=== PATIENT | male | born 1960 | race Caucasian/White ===

== ENCOUNTER 2018-10-20 14:27 | Observation (INO) | payer SELFPAY ==
--- NOTE | 2018-10-20 16:26 | HP ---
TRAUMA SURGEON: Song Day DO CONSULT PHYSICIAN: None. HISTORY OF PRESENT ILLNESS: Mr. Sol is a 58-year-old male patient, who presented to outside emergency department due to severe right lower quadrant/inguinal pain. The patient reports he was climbing underneath the house to check on a sweat pipe when a strong sweat smell caused him to strain and retch. Subsequently, he had significant right inguinal pain. He exited from the house and vomited several times. He went to the emergency department due to a persistent right inguinal hernia. The patient reports that he has been having the hernia off and on for about a year and three months. At the outside hospital, he received a CT scan of the abdomen and pelvis, which demonstrated concern for strangulated right inguinal hernia. He was transferred to [facility] Emergency Department after acceptance by Dr. Day. En route, he received pain medication, and subsequently, the inguinal hernia reduced and was no longer incarcerated. On my examination, the patient reported a very little right inguinal pain. He reports that he did have a bowel movement today. He has also been passing gas since before the incident and after the incident during his emergency room stay. His last meal was breakfast today. REVIEW OF SYSTEMS: All additional review of systems is negative except as indicated above. PAST MEDICAL HISTORY: None. PAST SURGICAL HISTORY: None. SOCIAL HISTORY: The patient is currently working. He smokes about a half a pack of cigarettes per day. He is a daily alcohol drinker. He does smoke marijuana occasionally. He lives alone. MEDICATIONS: None. ALLERGIES: NO KNOWN DRUG ALLERGIES. PHYSICAL EXAMINATION: VITAL SIGNS: Blood pressure 112/65, pulse 65, respirations 19, oxygen saturation 99% on 3 L oxygen via nasal cannula, and temperature 95.6. GENERAL: Alert, well-appearing, middle-aged male, sitting up in bed with nasal cannula in place. Appears comfortable with no signs of acute distress. HEENT: Significant chronic dental issues, but otherwise no signs of any trauma. Pupils equal, round, reactive to light. PULMONARY: Equal chest rise and fall. No signs of acute distress. Equal breath sounds bilaterally. ABDOMEN: Abdomen is soft and nondistended. Minimal tenderness in the right inguinal area with a small amount of swelling in that right inguinal area as well. Left inguinal area without signs of any hernia or pain. EXTREMITIES: Gross motor and sensation intact in all 4 extremities. 2+ pulses in all extremities. No signs of any trauma or deformity. LABORATORY FINDINGS: White cell count 13.7, hemoglobin 13.5, hematocrit 42.8, and platelets 254. INR 1.0. Sodium 139, potassium 3.6, chloride 104, carbon dioxide 22, BUN 10, creatinine 0.88, glucose 135. Lactic acid 1.9. Total bilirubin 0.3, AST 18, and ALT 16. DIAGNOSTIC FINDINGS: CT of the abdomen and pelvis demonstrates dilation of the pancreatic duct with hypodensity cystic area seen within the region of the pancreatic head, which may represent cystic pancreatic lesion, benign or malignant. MRI and MRCP are recommended for further evaluation. GI consultation may be helpful for further evaluation. Subcentimeter, too small to characterize hypodensity lesion in the left hepatic lobe. Non-obstructed superior pole renal calculi. Large right inguinal hernia with mildly dilated fluid-filled loops of small bowel proximal to the region suggesting developing small bowel obstruction. There is also fluid seen within the hernia defect, which does extend into the scrotum on the right. There is questionable associated internal hernia within the mid pelvis, which is in the region of the dilated loops of small bowel and mild edema within the mesentery. Surgical consultation is recommended in urgent/emergent basis for further evaluation. Mild thickening of the wall of the stomach which is probably attributed to incomplete distention. ASSESSMENT: 1. Right inguinal hernia, not incarcerated. 2. History of alcohol abuse. PLAN: The right inguinal hernia previously seen on CT and evaluated at outside emergency department does not seem to be incarcerated on evaluation in the emergency department at [facility]. The patient reports very good pain control and has stated that he has passed gas since his initial arrival in the emergency department. He did agree to observation today with plan to fix the hernia tomorrow by Dr. Day. The patient states that the hernia is persistent over the past 12 to 15 months, and he does not feel safe to go home as it is likely to reoccur before he is able to schedule the repair as outpatient. He will receive a clear liquid and be n.p.o. after midnight. He can have p.o. medications. We will hold DVT chemoprophylaxis at this time for surgery tomorrow. He will have preoperative a.m. labs as well. This patient was discussed with Dr. Day today after the examination. Job ID: [id number]
[2018-10-20] MEDS ORDERED: Dextrose 5% in Water 1,000 ML IV PRN (17:36)
[2018-10-20] MEDS ORDERED: traMADol HCl 50 MG TAB PO PRN ×2 (17:36)
[2018-10-20] MEDS ORDERED: Promethazine HCl 25 MG/ML VIAL IM PRN (17:36)
[2018-10-20] MEDS ORDERED: hydrALAZINE 20 MG/ML VIAL SLOW IVP PRN (17:36)
[2018-10-20] MEDS ORDERED: Morphine 4 MG/ML VIAL SLOW IVP PRN ×3 (17:36→17:59)
[2018-10-20] MEDS ORDERED: Dextrose 50% Abboject 50 ML SYRINGE SLOW IVP PRN (17:36)
[2018-10-20] MEDS ORDERED: Ondansetron PF 4 MG/2 ML Vial IVP PRN (17:36)
[2018-10-20] MEDS: Acetaminophen 500 MG TAB PO SCH (18:23)
[2018-10-20] MEDS: Sodium Chloride 0.9% 1,000 ML IV SCH (18:30)
[2018-10-20] MEDS: Oxazepam 10 MG CAP PO SCH (20:49)
[2018-10-20] MEDS: Famotidine/PF 20 mg/2ml Vial SLOW IVP SCH (20:49)
[2018-10-20 22:59] VITALS: BMI 21.7
[2018-10-21] MEDS: Acetaminophen 500 MG TAB PO SCH ×3 (00:13→13:19)
[2018-10-21] MEDS: Sodium Chloride 0.9% 1,000 ML IV SCH ×2 (03:15→15:54)
[2018-10-21] MEDS: Oxazepam 10 MG CAP PO SCH ×2 (05:42→14:14)
[2018-10-21 06:03] LABS: #Basophils 0.1 thou/uL (0.0-0.2); #Eosinphils 0.2 thou/uL (0.0-0.7); #Lymphocytes 1.8 thou/uL (1.20-3.40); #Monocytes 1.1 thou/uL (0.11-0.59); #Neutrophils 8.3 thou/uL (1.40-6.50); %Basophils 0.5 % (0.0-1.0); %Lymphocytes 15.5 % (21.0-51.0); %Monocytes 9.8 % (0.0-10.0); %Neutrophils 72.2 % (42.0-75.0); Hemoglobin 13.4 g/dL (14.0-18.0); Mean Corpuscular HGB CONC 31.5 g/dL (32.0-36.0); Mean Corpuscular Hemoglobin 27.6 pg (27.0-31.0); Mean Corpuscular Volume 87.6 fL (78.0-98.0); Mean Platelet Volume 7.7 fL (7.4-10.4); Platelet Count 215 thou/uL (130-400); RBC Distribution Width 12.4 % (11.5-14.5); Red Blood Cell (RBC) Count 4.85 mill/uL (4.70-6.10); White Blood Cell (WBC) Count 11.5 thou/uL (4.8-10.8)
[2018-10-21 06:14] LABS: Prothrombin Time 13.3 SEC (12.0-14.7)
[2018-10-21 06:32] LABS: Anion Gap 10 mmol/L (10-20); BUN (Urea Nitrogen) 9 mg/dL (8.4-25.7); Calc. Creatinine Clearance 91 mL/min (70-130); Calcium 8.5 mg/dL (7.8-10.44); Carbon Dioxide 26 mmol/L (22-29); Chloride 109 mmol/L (98-107); Estimated GFR-MDRD Greater than 90; Glucose 97 mg/dL (70-105); Phosphorus 2.9 mg/dL (2.3-4.7); Potassium 4.1 mmol/L (3.5-5.1); Sodium 141 mmol/L (136-145)
[2018-10-21] MEDS ORDERED: Potassium Phosphate 15 MMOL in Sodium Chloride 0.9% 250 ML 250 ML IVPB SCH (07:00)
[2018-10-21] MEDS: Famotidine/PF 20 mg/2ml Vial SLOW IVP SCH (08:18)
[2018-10-21] MEDS ORDERED: Bupivacaine HCl 0.5%/Epinephrine 1:200,000/PF 30 ml Vial ONE (09:40)
[2018-10-21] MEDS ORDERED: Midazolam HCl 2 mg/2 ml Vial ONE (09:55)
[2018-10-21] MEDS ORDERED: Fentanyl 100 MCG/2 ML VIAL ONE ×2 (10:20→12:04)
[2018-10-21] MEDS ORDERED: Ondansetron HCl/PF 4 MG/2 ML Vial IVP PRN (11:08)
[2018-10-21] MEDS ORDERED: Promethazine HCl 25 MG/ML VIAL SLOW IVP PRN (11:08)
[2018-10-21] MEDS ORDERED: Promethazine HCl 25 MG/ML VIAL IM PRN (11:08)
[2018-10-21 13:44] VITALS: TEMP 98
[2018-10-21] MEDS ORDERED: PROPOFOL 200 MG/20 ML VIAL ONE (16:03)
[2018-10-21] MEDS ORDERED: Lidocaine 1% PF 5 ML VIAL ONE (16:03)
[2018-10-21] MEDS ORDERED: Glycopyrrolate 0.2 MG/ML 5 ML SYRINGE ONE (16:03)
[2018-10-21] MEDS ORDERED: Rocuronium Bromide 10 MG/ML (10ML VIAL) ONE (16:03)
[2018-10-21 17:12] VITALS: BP 128/70
--- NOTE | 2018-10-21 17:37 | OP ---
DATE OF PROCEDURE: 10/21/2018 PREOPERATIVE DIAGNOSIS: Acute incarcerated right inguinal hernia. POSTOPERATIVE DIAGNOSIS: Reduced acute incarcerated large indirect inguinal hernia. PROCEDURE PERFORMED: Repair of right inguinal hernia with large Bard PerFix plug mesh. ANESTHESIA: General endotracheal. ESTIMATED BLOOD LOSS: Less than 5 mL. FLUIDS GIVEN: 500 mL of crystalloids. COUNTS: Sponge and instrument counts were verified as correct x2. COMPLICATIONS: None apparent at the time of operation. INDICATIONS FOR OPERATION: This is a 58-year-old man, who presented yesterday with what was thought to be a strangulated right inguinal hernia. Upon presentation, the hernia had spontaneously reduced. Abdominal pain was resolving. The patient was placed on observation. This morning, he reports no abdominal pain. The right inguinal hernia is now reducible, but easily returns into the scrotal sac. The patient was brought to the operating room for right inguinal hernia repair. FINDINGS: Consistent with a large indirect right inguinal hernia. There was no evidence of direct hernia present. DESCRIPTION OF OPERATION: Informed consent was obtained from the patient. He was brought to the operating room and placed in supine position. Following general anesthesia, the abdomen and pelvis were sterilely prepped and draped in usual fashion including the scrotum. A right oblique incision was made using 15 scalpel. Incision was carried through subcutaneous tissues maintaining hemostasis using cautery. Superficial vessels were cauterized and then divided. Nacho's fascia was incised along the line of the incision. The external oblique aponeurosis was then opened along the running fibers using a fresh scalpel. Hernia sac and cord structures were dissected free from underlying structures and encircled at the pubic tubercle using a Tip drain. The right inguinal floor was inspected. No direct hernia was present. We were then able to meticulously dissect off the hernia sac, freeing this from adherent cord structures. Care taken to avoid injuries to the vas deferens and vasculature. Cremasteric muscles were teased apart. No bleeding noted. The large hernia sac was then opened and contents were reduced into the peritoneal cavity. This was then twisted and ligated at the high inguinal position using a stick tie of 2-0 Vicryl and this was also doubly ligated with a free tie of 2-0 Vicryl. The sac was then amputated and passed off the operative field followed up transmission to Pathology. The operative site was inspected for good hemostasis. At this juncture, a large PerFix plug mesh was brought into the operative field and this was inserted into the internal ring, suturing this to internal oblique aponeurosis. A patch was then brought up to the operative field. The apex of the patch was sutured at the pubic tubercle using 2-0 Prolene suture. The mesh was secured medially to the internal oblique aponeurosis and laterally to the shelving portion of the external oblique fascia. The [place] drain was then removed. External oblique fascia was approximated over the cord and structures using a running stitch of 2-0 Prolene. The wound bed was generously infiltrated with 0.5% Marcaine with epinephrine. Nacho's fascia was approximated. This was achieved using a running stitch of 3-0 Vicryl. Skin incision was closed using a running stitch of 4-0 Monocryl suture in subcuticular fashion. Dermabond was applied over incisional closure. The right testicle was withdrawn into the scrotal sac. The patient tolerated the operation without any apparent complication and was returned to recovery room in satisfactory condition. Job ID: [id number]
[2018-10-21] MEDS ORDERED: Ibuprofen 600 MG TAB PO SCH (18:00)
--- NOTE | 2018-10-21 19:50 | DIS ---
DATE OF ADMISSION: 10/20/2018 DATE OF DISCHARGE: 10/21/2018 ADMITTING DIAGNOSIS: Acute incarcerated right inguinal hernia. DISCHARGE DIAGNOSIS: Acute incarcerated right inguinal hernia, resolved. OPERATION PERFORMED: Repair of right inguinal hernia with mesh on 10/21/2018, by Dr. Day. Please see separate dictation for operative report. HISTORY AND HOSPITAL COURSE: A 58-year-old man presented with nonreducible bulge in right groin mass, for which he was evaluated in an outside hospital. He was transferred to [facility] in [place], [place] for upper level workup and care of a suspected strangulated hernia. Upon presentation, the hernia had spontaneously resolved. The patient was having residual abdominal pain. He was therefore placed in observation for serial abdominal examination to rule out reduced ischemic incarcerated small bowel. This morning, the patient was evaluated. He has a reducible large right inguinal hernia, but no abdominal pain present. He was brought to the operating room therefore for inguinal herniorrhaphy. Following all the uneventful surgery, the patient returned to the floor for postoperative recovery. Hours later, he is ambulating with minimal difficulty. His pain remains controlled with oral analgesics. There is no evidence of recurrence with respect to the hernia. The patient was discharged home with the following instructions; 1. He sees me in the Surgery Clinic in 2 weeks. 2. He is to avoid weight lifting in excess of 20 pounds until I have released him. 3. He may shower effective tomorrow, but avoid soaking himself in a bathtub or swimming. May take acetaminophen 1000 mg p.o. q.6 hours alternating this with ibuprofen 600 mg p.o. q.8 hours. Additionally, he was given a prescription for tramadol 50 mg #30 to be taken 1 to 2 p.o. q.6 hours p.r.n. breakthrough pain. The patient is to call me with any questions or problems including recurrence of the hernia, exacerbation of pain, or intolerance to oral intake. The patient indicates understanding of information given. I have answered his questions. He has expressed gratitude for the care entire time during this hospitalization and surgery. Job ID: [id number]
== END 2018-10-21 17:20 | disposition home or self-care (01) ==
LOC: ERS 14:27 → SURG A 17:31
PROVIDERS: ADMIT Surgery; ATTEND Surgery
PROC: 0YU50JZ Supplement Right Inguinal Region with Synthetic Substitute, Open Approach (ICD-10-PCS; principal; 2018-10-21)
DX: K40.30 Unilateral inguinal hernia, with obstruction, without gangrene, not specified as recurrent (principal); F17.210 Nicotine dependence, cigarettes, uncomplicated
CPT/HCPCS: 36415; 80048; 83735; 84100; 85025; 88302; 96361; 96374; 96376; 99285; C1781; G0378; J0670; J2001; J2250; J2704; J3010; J7050; S0028

== ENCOUNTER 2021-04-29 12:44 | Inpatient (IN) | payer SELFPAY ==
[~2021-04-29 12:44] MED LIST: Iopamidol-370 76% 500 ML 1 ML ONE
[2021-04-29 13:20] LABS: Hemoglobin 15.7 g/dL (14.0-18.0); Mean Corpuscular HGB CONC 32.7 g/dL (32.0-36.0); Mean Corpuscular Hemoglobin 29.9 pg (27.0-31.0); Mean Corpuscular Volume 91.3 fL (78.0-98.0); Mean Platelet Volume 9.2 fL (7.4-10.4); Platelet Count 202 thou/uL (130-400); RBC Distribution Width 13.5 % (11.5-14.5); Red Blood Cell (RBC) Count 5.27 mill/uL (4.70-6.10); White Blood Cell (WBC) Count 20.5 thou/uL (4.8-10.8)
[2021-04-29] MEDS ORDERED: cefTRIAXone\\ROCEPHIN 2 GM VIAL ONE (13:21)
[2021-04-29] MEDS ORDERED: Vancomycin 1 GM/200 ML BAG ONE (13:21)
[2021-04-29 13:28] LABS: Bacteria/HPF None Seen HPF (None Seen); Bilirubin Negative (Negative); Blood, Urine Negative (Negative); Clarity Clear (Clear); Glucose, Urine (Dipstick) Normal (Negative); Ketone, Urine 20 mg/dL (Negative); Leukocyte Negative Leu/uL (Negative); Nitrite Negative (Negative); Protein, Urine (Dipstick) 30 mg/dL (Neg-Trace); RBC/HPF None Seen HPF (0-3); Specific Gravity, Urine 1.034 (1.002-1.036); Squamous Epithelial None Seen HPF (0-3); Urobilinogen Normal mg/dL (Less than 2); WBC/HPF 0-3 HPF (0-3)
[2021-04-29 13:34] LABS: INR-International Normal Ratio 1.1; Prothrombin Time 14.4 sec (12.0-14.7)
[2021-04-29 13:35] LABS: PTT 26.9 sec (22.9-36.1)
[2021-04-29 13:39] LABS: Amphetamine Not Detected (NotDetected); Barbiturates Screen Not Detected (NotDetected); Benzodiazepine Screen Not Detected (NotDetected); Cocaine Metabolite Screen Detected (NotDetected); Methadone Not Detected (NotDetected); Methamphetamine Detected (NotDetected); Opiate Screen Not Detected (NotDetected); Oxycodone Screen Not Detected (NotDetected); Phencyclidine (PCP) Not Detected (NotDetected); THC/Cannabinoid Screen Not Detected (NotDetected); Tricyclic Screen Not Detected (NotDetected)
[2021-04-29 13:43] LABS: Band 3 % (5-11); Lymphocytes 4 % (21-51); MDiff Complete? YES; Monocytes 8 % (0-10); Neutrophil 84 % (42-75); Platelet Morphology Comment Appears Adequate; Polychromasia SLIGHT = 2-3 cells (100X) (0-2/hpf); Reactive Lymphocytes 1 % (0-10)
[2021-04-29 13:44] LABS: Acetaminophen Less than 6.0 mcg/mL (10.0-30.0); Alcohol Less than 10 mg/dL (Less than 10); Salicylate Less than 8.0 mg/dL (15.0-30.0)
[2021-04-29 14:14] LABS: CKMB 8.2 ng/mL (0-6.6)
[2021-04-29] MEDS ORDERED: Lorazepam 2 MG/ML VIAL ONE (14:16)
[2021-04-29] MEDS ORDERED: Labetalol HCl 100 MG/20 ML VIAL ONE (14:27)
[2021-04-29 14:43] LABS: Albumin 3.5 g/dL (3.5-5.0)
[2021-04-29 14:44] LABS: Chloride 114 mmol/L (98-107); Potassium 4.8 mmol/L (3.5-5.1); Sodium 143 mmol/L (136-145)
[2021-04-29 14:45] LABS: Calcium 8.2 mg/dL (7.8-10.44); Glucose 147 mg/dL (70-105)
[2021-04-29] MEDS ORDERED: Lorazepam 2 MG/ML VIAL SLOW IVP SCH (14:45)
[2021-04-29] MEDS ORDERED: Vancomycin 1 GM in Premix Bag 1 BAG IVPB SCH (14:45)
[2021-04-29] MEDS ORDERED: cefTRIAXone\\ROCEPHIN 2 GM in Sodium Chloride 0.9% 100 ML IVPB SCH (14:45)
[2021-04-29] MEDS ORDERED: Sodium Chloride 0.9% 3,000 ML IV SCH (14:45)
[2021-04-29 14:46] LABS: Globulin 2.9 g/dL (2.4-3.5); Protein, Total 6.4 g/dL (6.0-8.3)
[2021-04-29 14:47] LABS: Anion Gap 13 mmol/L (10-20); Bilirubin, Total 1.1 mg/dL (0.2-1.2); Carbon Dioxide 21 mmol/L (22-29)
[2021-04-29 14:48] LABS: Alkaline Phosphatase 71 U/L (40-110)
[2021-04-29 14:49] LABS: Calc. Creatinine Clearance 0 mL/min (70-130)
[2021-04-29 14:50] LABS: BUN (Urea Nitrogen) 20 mg/dL (8.4-25.7)
[2021-04-29 14:51] LABS: ALT (SGPT) 28 U/L (8-55); AST (SGOT) 34 U/L (5-34); Magnesium 1.9 mg/dL (1.6-2.6)
[2021-04-29 14:52] LABS: Lipase 21 U/L (8-78)
[2021-04-29] MEDS ORDERED: Labetalol HCl 200 MG in Sodium Chloride 0.9% 250 ML 160 ML IVPB SCH (15:00)
[2021-04-29 15:32] LABS: SARS-CoV-2 NAA Rapid Test Not Detected (NotDetected)
[2021-04-29 16:25] LABS: Lactic Acid 2.5 mmol/L (0.5-2.2)
[2021-04-29 16:41] LABS: Troponin I 2.113 ng/mL (< 0.028)
[2021-04-29] MEDS ORDERED: Digoxin 0.5 MG/2 ML AMP SLOW IVP SCH (18:30)
[2021-04-29] MEDS ORDERED: Ondansetron PF 4 MG/2 ML Vial IVP PRN (18:31)
[2021-04-29] MEDS ORDERED: Digoxin 0.5 MG/2 ML AMP ONE (18:34)
[2021-04-29 18:47] VITALS: BMI 19.6
[2021-04-29] MEDS ORDERED: Labetalol HCl 200 MG, Admixture Fee 1 EACH in Sodium Chloride 0.9% 250 ML 160 ML IVPB SCH (19:00)
[2021-04-29 19:52] LABS: Critical Call Chem Troponin I RESULT DECREASING; Troponin I 1.856 ng/mL (< 0.028)
[2021-04-29] MEDS ORDERED: Metoprolol Tartrate 5 MG/5 ML VIAL ONE ×3 (20:30→22:36)
[2021-04-29 21:42] LABS: Lactic Acid 2.5 mmol/L (0.5-2.2)
[2021-04-29] MEDS: Metoprolol Tartrate 5 MG/5 ML VIAL IVP PRN ×3 (22:20→23:38)
[2021-04-29] MEDS ORDERED: Metoprolol Tartrate 50 MG TAB ONE (22:34)
[2021-04-30] MEDS ORDERED: Diltiazem 125 MG/25 ML ONE ×3 (00:21→21:50)
[2021-04-30] MEDS ORDERED: Vancomycin 1.5 GRAM/300 ML BAG 1.5 GM in Premix Bag 1 BAG IVPB SCH (01:00)
[2021-04-30] MEDS ORDERED: Piperacillin/Tazobactam 3.375 GM VIAL ONE ×3 (01:43→23:49)
[2021-04-30] MEDS: Sodium Chloride 0.9% 1,000 ML IV SCH ×4 (02:05→21:27)
[2021-04-30] MEDS: Piperacillin/Tazobactam 3.375 GM in Sodium Chloride 0.9% 100 ML IVPB SCH ×4 (02:33→23:51)
[2021-04-30] MEDS ORDERED: Vancomycin 1 GM/200 ML BAG ONE ×3 (04:33→12:12)
[2021-04-30] MEDS: Vancomycin 1 GM in Premix Bag 1 BAG IVPB SCH ×3 (04:35→13:50)
[2021-04-30 05:06] LABS: #Basophils 0.1 thou/uL (0.0-0.2); #Lymphocytes 1.4 thou/uL (1.20-3.40); #Monocytes 1.6 thou/uL (0.11-0.59); #Neutrophils 15.4 thou/uL (1.40-6.50); %Basophils 0.3 % (0.0-1.0); %Eosinophils 0.2 % (0.0-10.0); %Lymphocytes 7.8 % (21.0-51.0); %Monocytes 8.4 % (0.0-10.0); %Neutrophils 83.4 % (42.0-75.0); Hemoglobin 14.3 g/dL (14.0-18.0); Mean Corpuscular HGB CONC 33.1 g/dL (32.0-36.0); Mean Corpuscular Hemoglobin 30.4 pg (27.0-31.0); Mean Corpuscular Volume 91.8 fL (78.0-98.0); Mean Platelet Volume 8.3 fL (7.4-10.4); Platelet Count 207 thou/uL (130-400); RBC Distribution Width 13.1 % (11.5-14.5); Red Blood Cell (RBC) Count 4.69 mill/uL (4.70-6.10); White Blood Cell (WBC) Count 18.5 thou/uL (4.8-10.8)
[2021-04-30 05:28] LABS: Anion Gap 12 mmol/L (10-20); BUN (Urea Nitrogen) 13 mg/dL (8.4-25.7); Calc. Creatinine Clearance 97 mL/min (70-130); Calcium 8.5 mg/dL (7.8-10.44); Carbon Dioxide 25 mmol/L (22-29); Cardiac Risk 3.9 (Less than 4.5); Chloride 110 mmol/L (98-107); Cholesterol 144 mg/dl (< 200 Desired); Glucose 112 mg/dL (70-105); HDL Cholesterol 37 mg/dL (>60 Neg Risk); LDL Cholesterol, Calculated 87 mg/dL; Potassium 3.5 mmol/L (3.5-5.1); Sodium 143 mmol/L (136-145); Triglycerides 98 mg/dL (Less than 150)
[2021-04-30] MEDS ORDERED: Acetaminophen 650 MG Suppository ONE ×2 (05:51→21:47)
[2021-04-30] MEDS: Acetaminophen 650 MG Suppository PR PRN ×2 (05:53→22:01)
[2021-04-30] MEDS ORDERED: Lorazepam 2 MG/ML VIAL ONE (10:52)
[2021-04-30] MEDS: Lorazepam 2 MG/ML VIAL SLOW IVP PRN (10:57)
[2021-04-30] MEDS: Thiamine HCl 200 MG/2 ML VIAL SLOW IVP SCH (10:57)
[2021-04-30 13:33] LABS: Vancomycin, Trough 9.2 ug/mL
[2021-04-30] MEDS: Vancomycin 1.5 GRAM/300 ML BAG 1.5 GM in Premix Bag 1 BAG IVPB SCH (21:26)
[2021-05-01] MEDS ORDERED: Diltiazem 125 MG/25 ML ONE (04:01)
[2021-05-01 04:41] LABS: Hemoglobin 14.9 g/dL (14.0-18.0); Mean Corpuscular HGB CONC 33.9 g/dL (32.0-36.0); Mean Corpuscular Hemoglobin 30.5 pg (27.0-31.0); Mean Corpuscular Volume 89.9 fL (78.0-98.0); Mean Platelet Volume 7.1 fL (7.4-10.4); Platelet Count 215 thou/uL (130-400); RBC Distribution Width 12.6 % (11.5-14.5); White Blood Cell (WBC) Count 26.6 thou/uL (4.8-10.8)
[2021-05-01 04:57] LABS: Anion Gap 11 mmol/L (10-20); BUN (Urea Nitrogen) 11 mg/dL (8.4-25.7); Calc. Creatinine Clearance 98 mL/min (70-130); Calcium 8.5 mg/dL (7.8-10.44); Carbon Dioxide 24 mmol/L (22-29); Chloride 106 mmol/L (98-107); Glucose 103 mg/dL (70-105); Potassium 3.3 mmol/L (3.5-5.1); Sodium 138 mmol/L (136-145)
[2021-05-01 05:34] LABS: Band 13 % (5-11); Lymphocytes 1 % (21-51); MDiff Complete? YES; Monocytes 6 % (0-10); Neutrophil 79 % (42-75); Reactive Lymphocytes 1 % (0-10)
[2021-05-01] MEDS: Vancomycin 1.5 GRAM/300 ML BAG 1.5 GM in Premix Bag 1 BAG IVPB SCH ×3 (07:06→23:09)
[2021-05-01] MEDS ORDERED: Aspirin 300 MG Suppository ONE (09:20)
[2021-05-01] MEDS ORDERED: Piperacillin/Tazobactam 3.375 GM VIAL ONE (09:20)
[2021-05-01] MEDS: Aspirin 300 MG Suppository PR SCH (09:36)
[2021-05-01] MEDS: Piperacillin/Tazobactam 3.375 GM in Sodium Chloride 0.9% 100 ML IVPB SCH ×3 (10:28→17:08)
[2021-05-01] MEDS: Diltiazem 125 MG in Sodium Chloride 0.9% 100 ML IVPB SCH ×2 (12:52→23:09)
[2021-05-01] MEDS: Thiamine HCl 200 MG/2 ML VIAL SLOW IVP SCH (14:37)
[2021-05-01] MEDS: Sodium Chloride 0.9% 1,000 ML IV SCH ×2 (14:41→20:58)
[2021-05-01] MEDS ORDERED: Amino Acids 4.25 %/Dextrose 5% 2,000 ML BAG IV SCH (18:00)
[2021-05-01] MEDS ORDERED: Amino Acids 4.25 %/Dextrose 5% 2,000 ML IV SCH (18:30)
[2021-05-01] MEDS: Amino Acids 4.25 %/Dextrose 5% 1,000 ML IV SCH (20:56)
[2021-05-01 22:02] LABS: Vancomycin, Trough 19.8 ug/mL
[2021-05-02] MEDS: Piperacillin/Tazobactam 3.375 GM in Sodium Chloride 0.9% 100 ML IVPB SCH ×3 (01:27→16:26)
[2021-05-02] MEDS: Sodium Chloride 0.9% 1,000 ML IV SCH (06:07)
[2021-05-02] MEDS: Vancomycin 1.5 GRAM/300 ML BAG 1.5 GM in Premix Bag 1 BAG IVPB SCH ×2 (06:09→13:35)
[2021-05-02] MEDS: Diltiazem 125 MG in Sodium Chloride 0.9% 100 ML IVPB SCH ×2 (06:42→16:51)
[2021-05-02 08:12] LABS: #Eosinphils 0.3 thou/uL (0.0-0.7); #Lymphocytes 1.1 thou/uL (1.20-3.40); #Monocytes 1.6 thou/uL (0.11-0.59); #Neutrophils 19.5 thou/uL (1.40-6.50); %Eosinophils 1.2 % (0.0-10.0); %Lymphocytes 4.7 % (21.0-51.0); %Neutrophils 87.1 % (42.0-75.0); Hemoglobin 14.7 g/dL (14.0-18.0); Mean Corpuscular HGB CONC 33.4 g/dL (32.0-36.0); Mean Corpuscular Hemoglobin 29.8 pg (27.0-31.0); Mean Corpuscular Volume 89.3 fL (78.0-98.0); Mean Platelet Volume 7.9 fL (7.4-10.4); Platelet Count 209 thou/uL (130-400); RBC Distribution Width 12.6 % (11.5-14.5); Red Blood Cell (RBC) Count 4.95 mill/uL (4.70-6.10); White Blood Cell (WBC) Count 22.4 thou/uL (4.8-10.8)
[2021-05-02 08:24] LABS: Anion Gap 11 mmol/L (10-20); BUN (Urea Nitrogen) 12 mg/dL (8.4-25.7); Calc. Creatinine Clearance 109 mL/min (70-130); Calcium 8.5 mg/dL (7.8-10.44); Carbon Dioxide 22 mmol/L (22-29); Chloride 106 mmol/L (98-107); Glucose 115 mg/dL (70-105); Sodium 136 mmol/L (136-145)
[2021-05-02] MEDS: Aspirin 300 MG Suppository PR SCH (08:29)
[2021-05-02 08:30] LABS: Potassium 2.9 mmol/L (3.5-5.1)
[2021-05-02] MEDS: Thiamine HCl 200 MG/2 ML VIAL SLOW IVP SCH (11:33)
[2021-05-02] MEDS ORDERED: Potassium Chloride 40 MEQ in Premix Bag 1 BAG IVPB SCH (15:00)
[2021-05-02] MEDS ORDERED: Potassium Chloride 40 MEQ in Sodium Chloride 0.9% 250 ML 250 ML IVPB SCH (16:00)
[2021-05-02] MEDS: Amino Acids 4.25 %/Dextrose 5% 1,000 ML IV SCH (16:43)
[2021-05-02 20:15] LABS: Vancomycin, Trough 21.8 ug/mL
[2021-05-02] MEDS: Vancomycin 1 GM in Premix Bag 1 BAG IVPB SCH (21:40)
[2021-05-03] MEDS: Diltiazem 125 MG in Sodium Chloride 0.9% 100 ML IVPB SCH ×3 (01:37→19:32)
[2021-05-03] MEDS: Piperacillin/Tazobactam 3.375 GM in Sodium Chloride 0.9% 100 ML IVPB SCH ×3 (02:05→17:29)
[2021-05-03] MEDS: Sodium Chloride 0.9% 1,000 ML IV SCH (05:04)
[2021-05-03 06:40] LABS: #Eosinphils 0.1 thou/uL (0.0-0.7); #Lymphocytes 0.8 thou/uL (1.20-3.40); #Monocytes 1.6 thou/uL (0.11-0.59); #Neutrophils 17.5 thou/uL (1.40-6.50); %Basophils 0.1 % (0.0-1.0); %Eosinophils 0.5 % (0.0-10.0); %Lymphocytes 3.9 % (21.0-51.0); %Monocytes 7.9 % (0.0-10.0); %Neutrophils 87.7 % (42.0-75.0); Mean Corpuscular HGB CONC 34.9 g/dL (32.0-36.0); Mean Corpuscular Hemoglobin 30.7 pg (27.0-31.0); Mean Platelet Volume 6.9 fL (7.4-10.4); Platelet Count 246 thou/uL (130-400); RBC Distribution Width 12.3 % (11.5-14.5); Red Blood Cell (RBC) Count 4.89 mill/uL (4.70-6.10); White Blood Cell (WBC) Count 19.9 thou/uL (4.8-10.8)
[2021-05-03 07:01] LABS: Anion Gap 14 mmol/L (10-20); BUN (Urea Nitrogen) 9 mg/dL (8.4-25.7); Calc. Creatinine Clearance 111 mL/min (70-130); Calcium 8.9 mg/dL (7.8-10.44); Carbon Dioxide 22 mmol/L (22-29); Chloride 103 mmol/L (98-107); Glucose 135 mg/dL (70-105); Sodium 136 mmol/L (136-145)
[2021-05-03] MEDS: Vancomycin 1 GM in Premix Bag 1 BAG IVPB SCH ×3 (07:01→22:59)
[2021-05-03 07:08] LABS: Potassium 2.7 mmol/L (3.5-5.1)
[2021-05-03] MEDS: Potassium Chloride 20 MEQ in Premix Bag 1 BAG IVPB SCH ×4 (08:37→15:31)
[2021-05-03] MEDS: Aspirin 300 MG Suppository PR SCH (08:47)
[2021-05-03] MEDS: Thiamine HCl 200 MG/2 ML VIAL SLOW IVP SCH (11:50)
[2021-05-03] MEDS: Amino Acids 4.25 %/Dextrose 5% 1,000 ML IV SCH (12:31)
[2021-05-03 22:03] LABS: Vancomycin, Trough 15.2 ug/mL
[2021-05-04] MEDS: Piperacillin/Tazobactam 3.375 GM in Sodium Chloride 0.9% 100 ML IVPB SCH ×3 (00:54→17:45)
[2021-05-04] MEDS: Diltiazem 125 MG in Sodium Chloride 0.9% 100 ML IVPB SCH ×3 (03:08→20:25)
[2021-05-04] MEDS: Sodium Chloride 0.9% 1,000 ML IV SCH (03:09)
[2021-05-04] MEDS: Vancomycin 1 GM in Premix Bag 1 BAG IVPB SCH ×3 (05:51→22:02)
[2021-05-04] MEDS ORDERED: Potassium Chloride 20 MEQ in Premix Bag 1 BAG IVPB SCH (08:30)
[2021-05-04] MEDS: Aspirin 300 MG Suppository PR SCH (08:47)
[2021-05-04] MEDS: Acetaminophen 650 MG Suppository PR PRN (08:48)
[2021-05-04 09:45] LABS: Anion Gap 14 mmol/L (10-20); BUN (Urea Nitrogen) 10 mg/dL (8.4-25.7); Calc. Creatinine Clearance 114 mL/min (70-130); Calcium 9.1 mg/dL (7.8-10.44); Carbon Dioxide 24 mmol/L (22-29); Chloride 103 mmol/L (98-107); Glucose 123 mg/dL (70-105); Magnesium 1.8 mg/dL (1.6-2.6); Phosphorus 2.9 mg/dL (2.3-4.7); Sodium 138 mmol/L (136-145)
[2021-05-04 09:54] LABS: Potassium 2.9 mmol/L (3.5-5.1)
[2021-05-04] MEDS: Amino Acids 4.25 %/Dextrose 5% 1,000 ML IV SCH (10:29)
[2021-05-04] MEDS: Potassium Chloride 20 MEQ in Premix Bag 1 BAG IVPB SCH ×4 (11:55→18:38)
[2021-05-04] MEDS: Thiamine HCl 200 MG/2 ML VIAL SLOW IVP SCH (12:17)
[2021-05-04 21:28] LABS: Vancomycin, Trough 14.5 ug/mL
[2021-05-05] MEDS: Piperacillin/Tazobactam 3.375 GM in Sodium Chloride 0.9% 100 ML IVPB SCH (01:04)
[2021-05-05] MEDS: Sodium Chloride 0.9% 1,000 ML IV SCH (01:05)
[2021-05-05] MEDS: Vancomycin 1 GM in Premix Bag 1 BAG IVPB SCH ×2 (05:13→13:47)
[2021-05-05] MEDS: Diltiazem 125 MG in Sodium Chloride 0.9% 100 ML IVPB SCH ×3 (05:13→22:53)
[2021-05-05 07:36] LABS: Magnesium 2.2 mg/dL (1.6-2.6)
[2021-05-05] MEDS: Aspirin 300 MG Suppository PR SCH (08:23)
[2021-05-05] MEDS: Amino Acids 4.25 %/Dextrose 5% 1,000 ML IV SCH (08:29)
[2021-05-05] MEDS: Thiamine HCl 200 MG/2 ML VIAL SLOW IVP SCH (10:21)
[2021-05-05 10:39] LABS: #Basophils 0.1 thou/uL (0.0-0.2); #Eosinphils 0.4 thou/uL (0.0-0.7); #Lymphocytes 1.1 thou/uL (1.20-3.40); #Neutrophils 13.2 thou/uL (1.40-6.50); %Basophils 0.3 % (0.0-1.0); %Eosinophils 2.4 % (0.0-10.0); %Lymphocytes 6.4 % (21.0-51.0); %Monocytes 11.8 % (0.0-10.0); %Neutrophils 79.1 % (42.0-75.0); Hemoglobin 15.9 g/dL (14.0-18.0); Mean Corpuscular HGB CONC 34.5 g/dL (32.0-36.0); Mean Corpuscular Hemoglobin 30.5 pg (27.0-31.0); Mean Corpuscular Volume 88.4 fL (78.0-98.0); Mean Platelet Volume 8.4 fL (7.4-10.4); Platelet Count 220 thou/uL (130-400); RBC Distribution Width 12.5 % (11.5-14.5); Red Blood Cell (RBC) Count 5.19 mill/uL (4.70-6.10); White Blood Cell (WBC) Count 16.7 thou/uL (4.8-10.8)
[2021-05-05 11:13] LABS: Anion Gap 20 mmol/L (10-20); BUN (Urea Nitrogen) 11 mg/dL (8.4-25.7); Calc. Creatinine Clearance 103 mL/min (70-130); Calcium 9.3 mg/dL (7.8-10.44); Carbon Dioxide 17 mmol/L (22-29); Chloride 109 mmol/L (98-107); Glucose 101 mg/dL (70-105); Potassium 4.8 mmol/L (3.5-5.1); Sodium 141 mmol/L (136-145)
[2021-05-06] MEDS: Lorazepam 2 MG/ML VIAL SLOW IVP PRN ×2 (01:50→22:32)
[2021-05-06] MEDS: Metoprolol Tartrate 5 MG/5 ML VIAL IVP PRN (02:03)
[2021-05-06 05:19] LABS: #Basophils 0.1 thou/uL (0.0-0.2); #Eosinphils 0.3 thou/uL (0.0-0.7); #Lymphocytes 1.3 thou/uL (1.20-3.40); #Monocytes 1.6 thou/uL (0.11-0.59); #Neutrophils 14.3 thou/uL (1.40-6.50); %Basophils 0.3 % (0.0-1.0); %Eosinophils 1.7 % (0.0-10.0); %Lymphocytes 7.3 % (21.0-51.0); %Monocytes 9.3 % (0.0-10.0); %Neutrophils 81.4 % (42.0-75.0); Hemoglobin 14.5 g/dL (14.0-18.0); Mean Corpuscular Hemoglobin 29.8 pg (27.0-31.0); Mean Corpuscular Volume 87.9 fL (78.0-98.0); Mean Platelet Volume 6.7 fL (7.4-10.4); Platelet Count 344 thou/uL (130-400); RBC Distribution Width 12.3 % (11.5-14.5); Red Blood Cell (RBC) Count 4.88 mill/uL (4.70-6.10); White Blood Cell (WBC) Count 17.6 thou/uL (4.8-10.8)
[2021-05-06 05:36] LABS: Anion Gap 11 mmol/L (10-20); BUN (Urea Nitrogen) 12 mg/dL (8.4-25.7); Calc. Creatinine Clearance 114 mL/min (70-130); Calcium 9.1 mg/dL (7.8-10.44); Carbon Dioxide 27 mmol/L (22-29); Chloride 103 mmol/L (98-107); Glucose 117 mg/dL (70-105); Sodium 138 mmol/L (136-145)
[2021-05-06] MEDS: cefTRIAXone\\ROCEPHIN 2 GM in Sodium Chloride 0.9% 100 ML IVPB SCH (09:55)
[2021-05-06] MEDS: Potassium Chloride 20 MEQ in Premix Bag 1 BAG IVPB SCH ×3 (10:48→15:24)
[2021-05-06] MEDS: Aspirin 300 MG Suppository PR SCH (10:48)
[2021-05-06] MEDS: 1/2 NS w/KCL 20 mEq 1,000 ML IV SCH (13:06)
[2021-05-06] MEDS: Thiamine HCl 200 MG/2 ML VIAL SLOW IVP SCH (15:23)
[2021-05-06 17:31] LABS: Magnesium 1.8 mg/dL (1.6-2.6); Potassium 3.9 mmol/L (3.5-5.1)
[2021-05-06] MEDS: Amino Acids 4.25 %/Dextrose 5% 1,000 ML IV SCH (18:22)
[2021-05-06] MEDS: Diltiazem 125 MG in Sodium Chloride 0.9% 100 ML IVPB SCH (19:23)
[2021-05-07] MEDS: Diltiazem 125 MG in Sodium Chloride 0.9% 100 ML IVPB SCH ×3 (03:21→20:40)
[2021-05-07] MEDS: 1/2 NS w/KCL 20 mEq 1,000 ML IV SCH (04:03)
[2021-05-07] MEDS: Amino Acids 4.25 %/Dextrose 5% 1,000 ML IV SCH ×2 (05:10→20:52)
[2021-05-07 05:34] LABS: #Basophils 0.1 thou/uL (0.0-0.2); #Eosinphils 0.4 thou/uL (0.0-0.7); #Lymphocytes 1.2 thou/uL (1.20-3.40); #Monocytes 1.5 thou/uL (0.11-0.59); #Neutrophils 12.7 thou/uL (1.40-6.50); %Basophils 0.3 % (0.0-1.0); %Eosinophils 2.7 % (0.0-10.0); %Lymphocytes 7.8 % (21.0-51.0); %Monocytes 9.3 % (0.0-10.0); %Neutrophils 79.9 % (42.0-75.0); Hemoglobin 14.6 g/dL (14.0-18.0); Mean Corpuscular HGB CONC 33.7 g/dL (32.0-36.0); Mean Corpuscular Hemoglobin 29.7 pg (27.0-31.0); Mean Corpuscular Volume 88.3 fL (78.0-98.0); Platelet Count 351 thou/uL (130-400); RBC Distribution Width 12.4 % (11.5-14.5); White Blood Cell (WBC) Count 15.9 thou/uL (4.8-10.8)
[2021-05-07 05:54] LABS: Anion Gap 12 mmol/L (10-20); BUN (Urea Nitrogen) 15 mg/dL (8.4-25.7); Calc. Creatinine Clearance 106 mL/min (70-130); Calcium 9.2 mg/dL (7.8-10.44); Carbon Dioxide 25 mmol/L (22-29); Chloride 104 mmol/L (98-107); Glucose 112 mg/dL (70-105); Magnesium 1.8 mg/dL (1.6-2.6); Phosphorus 3.5 mg/dL (2.3-4.7); Potassium 3.6 mmol/L (3.5-5.1); Sodium 137 mmol/L (136-145)
[2021-05-07] MEDS: Digoxin 0.5 MG/2 ML AMP SLOW IVP SCH (08:44)
[2021-05-07] MEDS: cefTRIAXone\\ROCEPHIN 2 GM in Sodium Chloride 0.9% 100 ML IVPB SCH (08:57)
[2021-05-07] MEDS: Acetaminophen 650 MG Suppository PR PRN (09:01)
[2021-05-07] MEDS: Aspirin 300 MG Suppository PR SCH (09:01)
[2021-05-07] MEDS: Potassium Chloride 20 MEQ in Premix Bag 1 BAG IVPB SCH ×2 (11:15→13:49)
[2021-05-07] MEDS: Thiamine HCl 200 MG/2 ML VIAL SLOW IVP SCH (11:17)
[2021-05-07 14:47] LABS: SARS-CoV-2 PCR by NAA Not Detected (NotDetected)
[2021-05-07] MEDS ORDERED: Amino Acids 4.25 %/Dextrose 5% 1,000 ML IV SCH (15:55)
[2021-05-07] MEDS ORDERED: 1/2 NS w/KCL 20 mEq 1,000 ML IV SCH (16:00)
[2021-05-08] MEDS: Diltiazem 125 MG in Sodium Chloride 0.9% 100 ML IVPB SCH ×2 (05:59→15:26)
[2021-05-08] MEDS: Metoprolol Tartrate 5 MG/5 ML VIAL IVP PRN (06:15)
[2021-05-08 06:57] LABS: Anion Gap 14 mmol/L (10-20); BUN (Urea Nitrogen) 17 mg/dL (8.4-25.7); Calc. Creatinine Clearance 109 mL/min (70-130); Calcium 9.7 mg/dL (7.8-10.44); Carbon Dioxide 24 mmol/L (22-29); Chloride 102 mmol/L (98-107); Glucose 111 mg/dL (70-105); Magnesium 1.7 mg/dL (1.6-2.6); Potassium 4.2 mmol/L (3.5-5.1); Sodium 136 mmol/L (136-145)
[2021-05-08] MEDS: Amino Acids 4.25 %/Dextrose 5% 1,000 ML IV SCH ×2 (07:03→17:56)
[2021-05-08] MEDS: cefTRIAXone\\ROCEPHIN 2 GM in Sodium Chloride 0.9% 100 ML IVPB SCH (09:17)
[2021-05-08] MEDS: Digoxin 0.5 MG/2 ML AMP SLOW IVP SCH (09:17)
[2021-05-08] MEDS: Aspirin 300 MG Suppository PR SCH (09:17)
[2021-05-08] MEDS: Thiamine HCl 200 MG/2 ML VIAL SLOW IVP SCH (12:16)
[2021-05-08] MEDS: 1/2 NS w/KCL 20 mEq 1,000 ML IV SCH (17:20)
[2021-05-08 17:35] LABS: #Eosinphils 0.1 thou/uL (0.0-0.7); #Lymphocytes 1.3 thou/uL (1.20-3.40); #Monocytes 1.4 thou/uL (0.11-0.59); #Neutrophils 15.1 thou/uL (1.40-6.50); %Basophils 0.2 % (0.0-1.0); %Eosinophils 0.7 % (0.0-10.0); %Lymphocytes 7.2 % (21.0-51.0); %Monocytes 7.8 % (0.0-10.0); %Neutrophils 84.1 % (42.0-75.0); Hemoglobin 14.8 g/dL (14.0-18.0); Mean Corpuscular HGB CONC 31.6 g/dL (32.0-36.0); Mean Corpuscular Hemoglobin 28.2 pg (27.0-31.0); Mean Corpuscular Volume 89.2 fL (78.0-98.0); Mean Platelet Volume 7.8 fL (7.4-10.4); Platelet Count 355 thou/uL (130-400); RBC Distribution Width 12.6 % (11.5-14.5); Red Blood Cell (RBC) Count 5.27 mill/uL (4.70-6.10); White Blood Cell (WBC) Count 17.9 thou/uL (4.8-10.8)
[2021-05-09] MEDS: Diltiazem 125 MG in Sodium Chloride 0.9% 100 ML IVPB SCH ×2 (03:14→12:15)
[2021-05-09] MEDS: Amino Acids 4.25 %/Dextrose 5% 1,000 ML IV SCH ×2 (05:21→16:41)
[2021-05-09 05:55] LABS: Anion Gap 12 mmol/L (10-20); BUN (Urea Nitrogen) 19 mg/dL (8.4-25.7); Calc. Creatinine Clearance 113 mL/min (70-130); Calcium 9.5 mg/dL (7.8-10.44); Carbon Dioxide 24 mmol/L (22-29); Chloride 104 mmol/L (98-107); Glucose 109 mg/dL (70-105); Potassium 4.1 mmol/L (3.5-5.1); Sodium 136 mmol/L (136-145)
[2021-05-09] MEDS: cefTRIAXone\\ROCEPHIN 2 GM in Sodium Chloride 0.9% 100 ML IVPB SCH (09:42)
[2021-05-09] MEDS: Aspirin 300 MG Suppository PR SCH (09:43)
[2021-05-09] MEDS: Digoxin 0.5 MG/2 ML AMP SLOW IVP SCH (09:43)
[2021-05-09] MEDS: Thiamine HCl 200 MG/2 ML VIAL SLOW IVP SCH (09:52)
[2021-05-09 11:57] LABS: #Eosinphils 0.1 thou/uL (0.0-0.7); #Lymphocytes 1.4 thou/uL (1.20-3.40); #Monocytes 1.1 thou/uL (0.11-0.59); #Neutrophils 14.1 thou/uL (1.40-6.50); %Basophils 0.3 % (0.0-1.0); %Eosinophils 0.8 % (0.0-10.0); %Lymphocytes 8.1 % (21.0-51.0); %Monocytes 6.5 % (0.0-10.0); %Neutrophils 84.3 % (42.0-75.0); Hemoglobin 14.9 g/dL (14.0-18.0); Mean Corpuscular HGB CONC 32.1 g/dL (32.0-36.0); Mean Corpuscular Hemoglobin 28.6 pg (27.0-31.0); Mean Corpuscular Volume 89.2 fL (78.0-98.0); Mean Platelet Volume 8.8 fL (7.4-10.4); Platelet Count 297 thou/uL (130-400); RBC Distribution Width 12.4 % (11.5-14.5); White Blood Cell (WBC) Count 16.7 thou/uL (4.8-10.8)
[2021-05-09] MEDS: 1/2 NS w/KCL 20 mEq 1,000 ML IV SCH (12:15)
[2021-05-09] MEDS ORDERED: Diltiazem HCl SR 90 mg Capsule PO SCH (21:00)
[2021-05-09] MEDS: Atorvastatin Calcium 40 MG TAB PO SCH (21:41)
[2021-05-09] MEDS ORDERED: Acetaminophen 650 MG/20.3 ML UDCUP PO PRN (22:13)
[2021-05-10] MEDS: Amino Acids 4.25 %/Dextrose 5% 1,000 ML IV SCH ×2 (02:33→13:56)
[2021-05-10 06:04] LABS: Hemoglobin 15.2 g/dL (14.0-18.0); Mean Corpuscular HGB CONC 32.5 g/dL (32.0-36.0); Mean Corpuscular Hemoglobin 29.1 pg (27.0-31.0); Mean Corpuscular Volume 89.5 fL (78.0-98.0); Mean Platelet Volume 8.1 fL (7.4-10.4); Platelet Count 364 thou/uL (130-400); RBC Distribution Width 12.5 % (11.5-14.5); Red Blood Cell (RBC) Count 5.22 mill/uL (4.70-6.10); White Blood Cell (WBC) Count 21.8 thou/uL (4.8-10.8)
[2021-05-10 06:19] LABS: Anion Gap 11 mmol/L (10-20); BUN (Urea Nitrogen) 21 mg/dL (8.4-25.7); Calc. Creatinine Clearance 106 mL/min (70-130); Calcium 9.6 mg/dL (7.8-10.44); Carbon Dioxide 26 mmol/L (22-29); Chloride 102 mmol/L (98-107); Digoxin 0.35 ng/mL (0.8-2.0); Glucose 145 mg/dL (70-105); Potassium 3.9 mmol/L (3.5-5.1); Sodium 135 mmol/L (136-145)
[2021-05-10 06:24] LABS: Band 2 % (5-11); Eosinophils 1 % (0-10); Lymphocytes 4 % (21-51); MDiff Complete? YES; Monocytes 8 % (0-10); Neutrophil 85 % (42-75)
[2021-05-10] MEDS ORDERED: Aspirin 325 mg Enteric Coated Tablet PO SCH (09:00)
[2021-05-10] MEDS ORDERED: Digoxin 0.125 MG TAB PO SCH (09:00)
[2021-05-10] MEDS: cefTRIAXone\\ROCEPHIN 2 GM in Sodium Chloride 0.9% 100 ML IVPB SCH (09:32)
[2021-05-10] MEDS: Thiamine HCl 200 MG/2 ML VIAL SLOW IVP SCH (11:12)
[2021-05-10] MEDS: Acetaminophen 325 MG TAB PO PRN (20:45)
[2021-05-10] MEDS: Atorvastatin Calcium 40 MG TAB PO SCH (20:46)
[2021-05-11] MEDS ORDERED: Aspirin 81 mg Enteric Coated Tablet PO SCH (09:00)
[2021-05-11] MEDS: Thiamine 100 MG TAB PO SCH (10:12)
[2021-05-11] MEDS: Digoxin 0.25 MG TAB PO SCH (10:12)
[2021-05-11] MEDS: Apixaban 5 MG TAB PO SCH ×2 (10:13→20:09)
[2021-05-11] MEDS: cefTRIAXone\\ROCEPHIN 2 GM in Sodium Chloride 0.9% 100 ML IVPB SCH (10:13)
[2021-05-11] MEDS: Acetaminophen 325 MG TAB PO PRN (14:38)
[2021-05-11] MEDS: Atorvastatin Calcium 40 MG TAB PO SCH (20:09)
[2021-05-12] MEDS: Acetaminophen 325 MG TAB PO PRN ×2 (03:41→14:31)
[2021-05-12 05:53] LABS: #Basophils 0.1 thou/uL (0.0-0.2); #Eosinphils 0.2 thou/uL (0.0-0.7); #Lymphocytes 1.7 thou/uL (1.20-3.40); #Monocytes 1.2 thou/uL (0.11-0.59); #Neutrophils 13.1 thou/uL (1.40-6.50); %Basophils 0.6 % (0.0-1.0); %Eosinophils 1.3 % (0.0-10.0); %Lymphocytes 10.6 % (21.0-51.0); %Monocytes 7.1 % (0.0-10.0); %Neutrophils 80.4 % (42.0-75.0); Hemoglobin 14.5 g/dL (14.0-18.0); Mean Corpuscular HGB CONC 32.6 g/dL (32.0-36.0); Mean Corpuscular Hemoglobin 29.3 pg (27.0-31.0); Mean Corpuscular Volume 90.1 fL (78.0-98.0); Mean Platelet Volume 8.6 fL (7.4-10.4); Platelet Count 353 thou/uL (130-400); RBC Distribution Width 12.5 % (11.5-14.5); Red Blood Cell (RBC) Count 4.93 mill/uL (4.70-6.10); White Blood Cell (WBC) Count 16.3 thou/uL (4.8-10.8)
[2021-05-12 06:16] LABS: ALT (SGPT) 81 U/L (8-55); AST (SGOT) 36 U/L (5-34); Albumin 3.7 g/dL (3.5-5.0); Alkaline Phosphatase 93 U/L (40-110); Anion Gap 13 mmol/L (10-20); BUN (Urea Nitrogen) 20 mg/dL (8.4-25.7); Bilirubin, Total 0.7 mg/dL (0.2-1.2); Calc. Creatinine Clearance 93 mL/min (70-130); Calcium 9.6 mg/dL (7.8-10.44); Carbon Dioxide 28 mmol/L (22-29); Chloride 103 mmol/L (98-107); Globulin 2.9 g/dL (2.4-3.5); Glucose 127 mg/dL (70-105); Potassium 4.4 mmol/L (3.5-5.1); Protein, Total 6.6 g/dL (6.0-8.3); Sodium 140 mmol/L (136-145)
[2021-05-12] MEDS: Digoxin 0.25 MG TAB PO SCH (08:44)
[2021-05-12] MEDS: Apixaban 5 MG TAB PO SCH ×2 (08:44→20:55)
[2021-05-12] MEDS: Thiamine 100 MG TAB PO SCH (08:44)
[2021-05-12] MEDS: Aspirin Chewable 81 MG TAB PO SCH (08:44)
[2021-05-12] MEDS: cefTRIAXone\\ROCEPHIN 2 GM in Sodium Chloride 0.9% 100 ML IVPB SCH (08:45)
[2021-05-12] MEDS: Atorvastatin Calcium 40 MG TAB PO SCH (20:54)
[2021-05-13] MEDS: Acetaminophen 325 MG TAB PO PRN ×4 (02:39→20:42)
[2021-05-13 06:12] LABS: #Basophils 0.1 thou/uL (0.0-0.2); #Eosinphils 0.2 thou/uL (0.0-0.7); #Lymphocytes 1.8 thou/uL (1.20-3.40); #Monocytes 0.9 thou/uL (0.11-0.59); #Neutrophils 11.4 thou/uL (1.40-6.50); %Basophils 0.5 % (0.0-1.0); %Eosinophils 1.5 % (0.0-10.0); %Lymphocytes 12.4 % (21.0-51.0); %Monocytes 6.2 % (0.0-10.0); %Neutrophils 79.3 % (42.0-75.0); Hemoglobin 14.9 g/dL (14.0-18.0); Mean Corpuscular HGB CONC 32.3 g/dL (32.0-36.0); Mean Corpuscular Hemoglobin 29.1 pg (27.0-31.0); Mean Corpuscular Volume 89.9 fL (78.0-98.0); Mean Platelet Volume 8.4 fL (7.4-10.4); Platelet Count 375 thou/uL (130-400); RBC Distribution Width 12.5 % (11.5-14.5); Red Blood Cell (RBC) Count 5.13 mill/uL (4.70-6.10); White Blood Cell (WBC) Count 14.4 thou/uL (4.8-10.8)
[2021-05-13 06:20] LABS: Anion Gap 15 mmol/L (10-20); BUN (Urea Nitrogen) 21 mg/dL (8.4-25.7); Calc. Creatinine Clearance 95 mL/min (70-130); Calcium 9.6 mg/dL (7.8-10.44); Carbon Dioxide 26 mmol/L (22-29); Chloride 106 mmol/L (98-107); Glucose 111 mg/dL (70-105); Magnesium 2.1 mg/dL (1.6-2.6); Potassium 4.5 mmol/L (3.5-5.1); Sodium 142 mmol/L (136-145)
[2021-05-13] MEDS: Thiamine 100 MG TAB PO SCH (09:56)
[2021-05-13] MEDS: Aspirin Chewable 81 MG TAB PO SCH (09:57)
[2021-05-13] MEDS: Digoxin 0.25 MG TAB PO SCH (09:57)
[2021-05-13] MEDS: Apixaban 5 MG TAB PO SCH ×2 (10:13→20:42)
[2021-05-13] MEDS ORDERED: Nicotine 14 MG PATCH TD PRN (17:31)
[2021-05-13] MEDS: Atorvastatin Calcium 40 MG TAB PO SCH (20:42)
[2021-05-14] MEDS: Acetaminophen 325 MG TAB PO PRN ×2 (01:58→16:45)
[2021-05-14] MEDS: Aspirin Chewable 81 MG TAB PO SCH (09:06)
[2021-05-14] MEDS: Thiamine 100 MG TAB PO SCH (09:07)
[2021-05-14] MEDS: Digoxin 0.25 MG TAB PO SCH (09:07)
[2021-05-14] MEDS: Apixaban 5 MG TAB PO SCH ×2 (09:07→21:41)
[2021-05-14] MEDS: Metoprolol Tartrate 25 MG TAB PO SCH (21:41)
[2021-05-14] MEDS: Atorvastatin Calcium 40 MG TAB PO SCH (21:42)
[2021-05-15 05:32] LABS: #Basophils 0.1 thou/uL (0.0-0.2); #Eosinphils 0.3 thou/uL (0.0-0.7); #Lymphocytes 2.5 thou/uL (1.20-3.40); #Monocytes 0.9 thou/uL (0.11-0.59); #Neutrophils 8.7 thou/uL (1.40-6.50); %Basophils 0.8 % (0.0-1.0); %Eosinophils 2.2 % (0.0-10.0); %Lymphocytes 20.1 % (21.0-51.0); %Monocytes 6.9 % (0.0-10.0); Hemoglobin 15.7 g/dL (14.0-18.0); Mean Corpuscular Hemoglobin 27.6 pg (27.0-31.0); Mean Corpuscular Volume 89.1 fL (78.0-98.0); Mean Platelet Volume 7.1 fL (7.4-10.4); Platelet Count 388 thou/uL (130-400); RBC Distribution Width 12.4 % (11.5-14.5); Red Blood Cell (RBC) Count 5.67 mill/uL (4.70-6.10); White Blood Cell (WBC) Count 12.4 thou/uL (4.8-10.8)
[2021-05-15 05:49] LABS: Anion Gap 17 mmol/L (10-20); BUN (Urea Nitrogen) 19 mg/dL (8.4-25.7); Calc. Creatinine Clearance 97 mL/min (70-130); Calcium 9.4 mg/dL (7.8-10.44); Carbon Dioxide 24 mmol/L (22-29); Chloride 106 mmol/L (98-107); Glucose 104 mg/dL (70-105); Potassium 5.1 mmol/L (3.5-5.1); Sodium 142 mmol/L (136-145)
[2021-05-15] MEDS: Metoprolol Tartrate 25 MG TAB PO SCH ×3 (08:16→22:02)
[2021-05-15] MEDS: Aspirin Chewable 81 MG TAB PO SCH (08:16)
[2021-05-15] MEDS: Thiamine 100 MG TAB PO SCH (08:16)
[2021-05-15] MEDS: Digoxin 0.25 MG TAB PO SCH (08:16)
[2021-05-15] MEDS: Apixaban 5 MG TAB PO SCH ×2 (08:16→22:01)
[2021-05-15 08:29] LABS: SARS-CoV-2 PCR by NAA Not Detected (NotDetected)
[2021-05-15] MEDS: Atorvastatin Calcium 40 MG TAB PO SCH (22:01)
[2021-05-15] MEDS: Acetaminophen 325 MG TAB PO PRN (22:02)
[2021-05-16] MEDS ORDERED: Sterile Water 10 ML VIAL FS PRN (01:00)
[2021-05-16] MEDS ORDERED: OLANZapine 10 MG VIAL IM SCH (01:00)
[2021-05-16] MEDS: Metoprolol Tartrate 5 MG/5 ML VIAL IVP PRN (07:39)
[2021-05-16] MEDS: Metoprolol Tartrate 25 MG TAB PO SCH ×3 (08:17→21:39)
[2021-05-16] MEDS: Aspirin Chewable 81 MG TAB PO SCH (09:23)
[2021-05-16] MEDS: Thiamine 100 MG TAB PO SCH (09:23)
[2021-05-16] MEDS: Apixaban 5 MG TAB PO SCH ×2 (09:23→21:39)
[2021-05-16] MEDS: Atorvastatin Calcium 40 MG TAB PO SCH (21:39)
[2021-05-16] MEDS: Acetaminophen 325 MG TAB PO PRN (21:39)
[2021-05-17] MEDS: Metoprolol Tartrate 5 MG/5 ML VIAL IVP PRN (04:28)
[2021-05-17] MEDS: Aspirin Chewable 81 MG TAB PO SCH (09:45)
[2021-05-17] MEDS: Thiamine 100 MG TAB PO SCH (09:45)
[2021-05-17] MEDS: Metoprolol Tartrate 25 MG TAB PO SCH ×3 (09:45→17:04)
[2021-05-17] MEDS: Apixaban 5 MG TAB PO SCH (09:45)
[2021-05-17] MEDS: Acetaminophen 325 MG TAB PO PRN (14:27)
[2021-05-17 17:24] VITALS: BP 146/80; TEMP 97.8
== END 2021-05-17 16:50 | DRG 64 ==
LOC: ERS 12:44 → ERHOLD 14:47 → 3SE 05-01 10:52
PROVIDERS: ADMIT Internal Medicine; ATTEND Internal Medicine
PROC: 05HY33Z Insertion of Infusion Device into Upper Vein, Percutaneous Approach (ICD-10-PCS; principal; 2021-05-05)
DX: I63.311 Cerebral infarction due to thrombosis of right middle cerebral artery (principal); Z20.822 Contact with and (suspected) exposure to COVID-19; R29.718 NIHSS score 18; A41.9 Sepsis, unspecified organism; I21.4 Non-ST elevation (NSTEMI) myocardial infarction; G93.41 Metabolic encephalopathy; G81.94 Hemiplegia, unspecified affecting left nondominant side; E46 Unspecified protein-calorie malnutrition; Z68.1 Body mass index [BMI] 19.9 or less, adult; R47.01 Aphasia; F17.210 Nicotine dependence, cigarettes, uncomplicated; F12.10 Cannabis abuse, uncomplicated; F14.10 Cocaine abuse, uncomplicated; F15.10 Other stimulant abuse, uncomplicated; K04.7 Periapical abscess without sinus; R47.1 Dysarthria and anarthria; I07.1 Rheumatic tricuspid insufficiency; I48.0 Paroxysmal atrial fibrillation; E87.6 Hypokalemia; R13.12 Dysphagia, oropharyngeal phase; R29.810 Facial weakness; F10.10 Alcohol abuse, uncomplicated
CPT/HCPCS: 0042T; 36415; 36416; 51701; 70450; 70496; 70498; 71045; 73521; 74230; 80048; 80053; 80061; 80162; 80202; 80306; 80307; 81003; 81015; 82553; 83605; 83690; 83735; 84100; 84145; 84484; 85025; 85610; 85730; 86850; 86900; 86901; 87040; 87086; 93005; 93306; 94760; 95712; 95819; 95957; 96365; 96366; 96367; 96375; J0696; J1160; J2060; J2358; J2405; J2543; J3370; J3411; J3475; J3480; J3490; J7050; Q9967; U0002; U0003; U0005